=== PATIENT | female | born 1985 | race Caucasian/White ===

== ENCOUNTER 2022-05-12 17:43 | Emergency (ER) | payer MEDICAID ==
[~2022-05-12] VITALS: Ht 160 cm; Wt 67.3 kg
[~2022-05-12 17:43] MED LIST: ADVIL200 MG PO; CEFTIN 250250 MG/TAB PO; CHANTIX 1MG1 MG PO; CYMBALTA 30MG30 MG PO; MULTIPLE VITAMI1 TA5 PO; NIX CREME RINSE60 M1 TP; NORCO 325 MG-51 TAB PO; PAXIL 30MG30 MG PO; PYRIDIUM200 M1 PO; TYLENOL 500MG500 MG PO; ZITHROMAX 250M250 MG PO; ZOFRAN 4MG T4 MG/TAB PO
[2022-05-12 18:03] VITALS: TEMP 98.7
[2022-05-12 18:46] LABS: BASO % 0.3 % (0.0-2.0); EOS # 0.4 K/mm3 (0.0-0.7); EOS % 3.7 % (0.0-4.0); GRAN # 7.5 K/mm3 (1.4-6.5); LYMPH # 2.5 K/mm3 (1.2-3.4); LYMPH % 21.5 % (20.0-51.0); MEAN CELL VOLUME 75 fl (80.0-100.0); MEAN CORPUSCULAR HGB CONC 30 g/dl (33.0-37.0); MEAN PLATELET VOLUME 9.2 fl (7.4-10.4); MONO # 1.2 K/mm3 (0.1-0.6); MONO % 10.2 % (1.7-9.3); PLATELET COUNT 470 K/mm3 (130-400); RED BLOOD COUNT 4.17 M/mm3 (4.10-5.30); REDCELL DISTRIBUTION WIDTH-CV 18.4 % (11.5-14.5)
[2022-05-12 18:48] LABS: HEMATOCRIT 31.2 % (37.0-47.0); HEMOGLOBIN 9.3 g/dl (12.5-16.0); MEAN CORPUSCULAR HEMOGLOBIN 22 pg (27-31)
[2022-05-12 19:06] LABS: ALANINE AMINOTRANSFERASE 16 U/L (0-55); ALBUMIN 3.8 gm/dL (3.5-5.0); ALKALINE PHOSPHATASE 72 U/L (40-150); ANION GAP 11 mmol/L (7-16); AST,SGOT 12 U/L (5-34); BILIRUBIN,TOTAL 0.2 mg/dL (0.2-1.2); BLOOD UREA NITROGEN 12 mg/dL (7-19); C-REACTIVE PROTEIN 0.33 mg/dL (0.00-0.50); CALCIUM 9.3 mg/dL (8.4-10.2); CARBON DIOXIDE 23 mmol/L (22-29); CHLORIDE 109 mmol/L (98-107); CREATINE KINASE 114 U/L (29-168); CREATININE, serum 0.78 mg/dL (0.57-1.11); GLUCOSE 100 mg/dL (70-99); POTASSIUM 3.1 mmol/L (3.5-4.5); SODIUM 143 mmol/L (136-145); TOTAL PROTEIN 7.2 gm/dL (6.2-8.1)
[2022-05-12 19:26] LABS: THYROID STIMULATING HORMONE 1.066 uIU/mL (0.350-4.940)
[2022-05-12 19:28] LABS: TROPONIN-I < 0.010 ng/mL (0.00-0.033)
[2022-05-12 20:00] VITALS: BP 144/99; PULSE 90
== END 2022-05-12 20:00 | disposition home or self-care (01) ==
LOC: COL.ER 17:43
PROVIDERS: Emergency Medicine
DX: R06.02 Shortness of breath (principal); E87.6 Hypokalemia; R60.0 Localized edema; R53.83 Other fatigue; D72.829 Elevated white blood cell count, unspecified
CPT/HCPCS: J7030

== ENCOUNTER 2022-06-07 04:27 | Emergency (ER) | payer MEDICAID ==
[~2022-06-07] VITALS: Ht 7.6 cm; Wt 67.3 kg
[2022-06-07 04:40] VITALS: TEMP 97.7
[2022-06-07] MEDS ORDERED: XANAX 0.5MG0.5 MG PO (04:50)
[2022-06-07] MEDS ORDERED: ABILIFY 10MG TA10 MG PO (04:50)
[2022-06-07] MEDS ORDERED: LAMICTAL 25MG T25 MG PO (04:51)
[2022-06-07 05:07] LABS: BASO % 0.2 % (0.0-2.0); EOS # 0.4 K/mm3 (0.0-0.7); EOS % 2.7 % (0.0-4.0); GRAN # 8.8 K/mm3 (1.4-6.5); GRAN % 65.2 % (42.2-75.2); HEMATOCRIT 32.9 % (37.0-47.0); HEMOGLOBIN 9.9 g/dl (12.5-16.0); LYMPH # 2.9 K/mm3 (1.2-3.4); LYMPH % 21.2 % (20.0-51.0); MEAN CELL VOLUME 75 fl (80.0-100.0); MEAN CORPUSCULAR HEMOGLOBIN 23 pg (27-31); MEAN CORPUSCULAR HGB CONC 30 g/dl (33.0-37.0); MEAN PLATELET VOLUME 9.7 fl (7.4-10.4); MONO # 1.4 K/mm3 (0.1-0.6); MONO % 10.3 % (1.7-9.3); PLATELET COUNT 473 K/mm3 (130-400); RED BLOOD COUNT 4.39 M/mm3 (4.10-5.30); REDCELL DISTRIBUTION WIDTH-CV 18.2 % (11.5-14.5)
[2022-06-07 05:24] LABS: ALBUMIN 3.8 gm/dL (3.5-5.0); BILIRUBIN,TOTAL 0.2 mg/dL (0.2-1.2); C-REACTIVE PROTEIN 0.23 mg/dL (0.00-0.50); CALCIUM 9.1 mg/dL (8.4-10.2); CREATININE, serum 0.7 mg/dL (0.57-1.11); POTASSIUM 3.4 mmol/L (3.5-4.5); TOTAL PROTEIN 7.1 gm/dL (6.2-8.1)
[2022-06-07 05:38] LABS: COLLECTION METHOD CLEAN CATCH
[2022-06-07 05:48] LABS: MUCOUS Present (NOT PRESENT); URINE BACTERIA None Seen /hpf (NONE SEEN); URINE COLOR Yellow (YELLOW); URINE RBC 0-2 /hpf (0-2)
[2022-06-07 05:49] LABS: PH 5.5 (5.0-8.5); URINE APPEARANCE Cloudy (CLEAR/HAZY); URINE BLOOD 1+ (NEGATIVE); URINE GLUCOSE Negative (NEGATIVE); URINE KETONE Negative (NEGATIVE); URINE NITRATE Negative (NEGATIVE); URINE PROTEIN(semi-quant) TRACE (NEGATIVE); URINE UROBILINOGEN 0.2 E.U/dL (0.2-1.0)
[2022-06-07] MEDS ORDERED: PERCOCET 325 MG1 TA2 PO (08:32)
[2022-06-07 08:52] VITALS: BP 151/91; PULSE 96
== END 2022-06-07 08:52 | disposition home or self-care (01) ==
LOC: COL.ER 04:27
PROVIDERS: Family Medicine
DX: S22.31XA Fracture of one rib, right side, initial encounter for closed fracture (principal); S32.018A Other fracture of first lumbar vertebra, initial encounter for closed fracture; S32.028A Other fracture of second lumbar vertebra, initial encounter for closed fracture; R91.1 Solitary pulmonary nodule; D72.829 Elevated white blood cell count, unspecified; F17.290 Nicotine dependence, other tobacco product, uncomplicated; Z20.822 Contact with and (suspected) exposure to COVID-19; Z32.02 Encounter for pregnancy test, result negative; X58.XXXA Exposure to other specified factors, initial encounter
CPT/HCPCS: Q9967

== ENCOUNTER 2023-08-17 00:40 | Emergency (ER) | payer MEDICAID ==
[~2023-08-17] VITALS: Ht 160 cm; Wt 72.7 kg
[~2023-08-17 00:40] MED LIST changes: +ABILIFY 10MG TA10 MG PO; +CEPHALEXIN500 M1 PO; +LAMICTAL 25MG T25 MG PO; +PERCOCET 325 MG1 TA2 PO; +XANAX 0.5MG0.5 MG PO
[2023-08-17 00:41] VITALS: TEMP 98
[2023-08-17 02:23] VITALS: BP 156/100; PULSE 64
== END 2023-08-17 02:24 | disposition home or self-care (01) ==
LOC: COL.ER 00:40
DX: B34.9 Viral infection, unspecified (principal); R11.2 Nausea with vomiting, unspecified; F15.90 Other stimulant use, unspecified, uncomplicated
CPT/HCPCS: J1790

== ENCOUNTER 2024-04-30 19:47 | Emergency (ER) | payer MEDICAID ==
[~2024-04-30] VITALS: Ht 160 cm; Wt 68.2 kg
[~2024-04-30 19:47] MED LIST changes: +FLEXERIL 1010 MG/TAB PO; +LEVAQUIN 5500 MG/TA1 PO; +MOTRIN 800800 MG/TAB PO
[2024-04-30 19:52] VITALS: TEMP 98.5
[2024-04-30] MEDS ORDERED: Ketorolac 30 MG/ML VIAL IV ONE (20:15)
[2024-04-30] MEDS ORDERED: NS 1,000 ML IV ONE (20:15)
[2024-04-30] MEDS ORDERED: Ondansetron 4 MG/2 ML VIAL IV ONE (20:15)
[2024-04-30 20:19] LABS: BASO % 0.3 % (0.0-2.0); EOS # 0.3 K/mm3 (0.0-0.7); EOS % 2.1 % (0.0-4.0); GRAN # 8.1 K/mm3 (1.4-6.5); GRAN % 62.2 % (42.2-75.2); HEMOGLOBIN 10.7 g/dl (12.5-16.0); LYMPH # 3.2 K/mm3 (1.2-3.4); LYMPH % 24.6 % (20.0-51.0); MEAN CELL VOLUME 80 fl (80.0-100.0); MEAN CORPUSCULAR HEMOGLOBIN 25 pg (27-31); MEAN CORPUSCULAR HGB CONC 31 g/dl (33.0-37.0); MEAN PLATELET VOLUME 9.3 fl (7.4-10.4); MONO # 1.4 K/mm3 (0.1-0.6); MONO % 10.3 % (1.7-9.3); PLATELET COUNT 398 K/mm3 (130-400); RED BLOOD COUNT 4.34 M/mm3 (4.10-5.30); REDCELL DISTRIBUTION WIDTH-CV 17.1 % (11.5-14.5)
[2024-04-30 20:36] LABS: ALBUMIN 3.7 g/dL (3.5-5.0); BILIRUBIN,TOTAL 0.2 mg/dL (0.2-1.2); CALCIUM 9.2 mg/dL (8.4-10.2); CREATININE, serum 0.72 mg/dL (0.57-1.11); HEMATOCRIT 34.7 % (37.0-47.0); POTASSIUM 3.8 mEq/L (3.5-4.5); TOTAL PROTEIN 6.8 g/dl (6.2-8.1)
[2024-04-30 22:48] LABS: COLLECTION METHOD CLEAN CATCH
[2024-04-30] MEDS ORDERED: Iohexol 300 - 100 ML VIAL IV ONE (22:55)
[2024-04-30] MEDS ORDERED: NS 50 ML IV ONE (22:58)
[2024-04-30 23:03] LABS: PH 6.5 (5.0-8.5); URINE APPEARANCE CLEAR (CLEAR/HAZY); URINE BLOOD NEGATIVE (NEGATIVE); URINE COLOR YELLOW (YELLOW); URINE GLUCOSE NEGATIVE (NEGATIVE); URINE KETONE NEGATIVE (NEGATIVE); URINE NITRATE NEGATIVE (NEGATIVE); URINE PROTEIN(semi-quant) TRACE (NEGATIVE); URINE UROBILINOGEN 0.2 E.U/dL (0.2-1.0)
[2024-04-30] MEDS ORDERED: Famotidine 20 MG TAB PO ONE (23:45)
[2024-04-30] MEDS ORDERED: Mag/Al Hydrox/Simeth Susp 30 ML CUP PO ONE (23:45)
[2024-05-01] MEDS ORDERED: ZOFRAN ODT4 MG PO (00:16)
[2024-05-01 00:25] VITALS: BP 156/85; PULSE 100
[2024-05-01] MEDS ORDERED: Home Ondansetron ODT 4 MG #2 ODT/PACK PO ONE (00:30)
== END 2024-05-01 00:25 | disposition home or self-care (01) ==
LOC: COL.ER 19:47
PROVIDERS: Nurse Practitioner Primary Care
DX: R53.81 Other malaise (principal); R11.0 Nausea; F17.210 Nicotine dependence, cigarettes, uncomplicated; F17.290 Nicotine dependence, other tobacco product, uncomplicated
CPT/HCPCS: J0780; J1885; J2405; J7030; Q9967